=== PATIENT | male | born 1985 | race Caucasian/White ===

== ENCOUNTER 2018-09-28 00:45 | Emergency (ER) | payer MEDICAID ==
[~2018-09-28] VITALS: Ht 170.2 cm; Wt 81.8 kg
[2018-09-28] MEDS ORDERED: GuaiFENesin/D-METHORPHAN [SUGAR-FREE] 200-20MG/10 ML SYRUP UDCUP PO ONE (01:30)
[2018-09-28] MEDS ORDERED: ACETAMINOPHEN/CODEINE 300-30 MG TABLET PO ONE (01:30)
[2018-09-28 01:35] VITALS: BP 126/72
== END 2018-09-28 01:41 | disposition home or self-care (01) ==
LOC: EMS 00:45
DX: J40 Bronchitis, not specified as acute or chronic (principal); F17.210 Nicotine dependence, cigarettes, uncomplicated
CPT/HCPCS: 99406